=== PATIENT | male | born 1950 | race Asian ===

== ENCOUNTER 2018-05-04 01:05 | Emergency (ER) | payer MEDICARE, OTHER ==
[~2018-05-04] VITALS: Ht 165.1 cm; Wt 63.5 kg
[~2018-05-04 01:05] MED LIST: HYOS0.1283 SL; PANT40TA2 PO
[2018-05-04] MEDS ORDERED: TRAZ-28 (01:20)
[2018-05-04] MEDS ORDERED: LOVA40TA2 (01:20)
[2018-05-04] MEDS ORDERED: VERA180C4 (01:20)
[2018-05-04] MEDS ORDERED: FENO145T37 (01:20)
[2018-05-04] MEDS ORDERED: ASPIRIN 81 MG CHEW (CHILDREN'S ASA) PO ONE (01:30)
--- NOTE | 2018-05-04 01:37 | ED Chest Pain ---
General Chief Complaint: Chest Pain Stated Complaint: CHEST PAIN Nursing Triage Note: INTERMITTANT CHEST PAIN X2HRS STARTING AT REST. PT REPORTS IT RADIATES TO BACK. Nursing Sepsis Screen: No Definite Risk Source: patient, family (son) Exam Limitations: language barrier History of Present Illness Date Seen by Provider: May 04, 2018 Time Seen by Provider: 01:26 Initial Comments The patient presents to the ER by private conveyance with his son and a chief complaint that this evening he woke up having some chest pain and shortness of breath and he thought the chest pain in the center of his chest radiating to his back and felt like acid reflux which she has a problem with. He took an antacid 30 minutes ago and it did not help immediately like it usually does. His chest pain also felt a little different than his usual acid reflux and he was having shortness of breath and this worried him. The chest pain started 2 hours prior to arrival. He does not have a history of coronary artery disease however he does have hypertension and hyperlipidemia. He says he maybe prediabetic and no history of hyperthyroidism. He quit smoking kids ago. He does not have COPD. He has not been coughing having fevers or chills or rash. He has no nausea or sweats. His pain does not radiate to either the shoulder, neck or jaw. By the time he got to the ER however his pain is almost gone. His burning is better when he is up walking around and worse when he lays down flat. It is not made worse by exertion. Allergies and Home Medications Allergies Coded Allergies: No Known Drug Allergies (Unverified , 03/27/15) Patient Home Medication List Home Medication List Reviewed: Yes Review of Systems Constitutional: No chills, No diaphoresis EENTM: No Blurred Vision, No Double Vision Respiratory: See HPI; Denies Cough; Shortness of Air Cardiovascular: See HPI, Chest Pain; Denies Edema, Denies Irregular Heart Rate , Denies Palpitations Gastrointestinal: Denies Constipated, Denies Diarrhea, Denies Nausea Genitourinary: Denies Burning, Denies Discharge Musculoskeletal: No back pain, No joint pain Skin: No pruritus, No rash Psychiatric/Neurological: Denies Headache, Denies Numbness Past Vfmqyxu-Onjkiq-Srlrsf Hx Patient Social History Alcohol Use: Denies Use Recreational Drug Use: No Smoking Status: Never a Smoker 2nd Hand Smoke Exposure: No Recent Foreign Travel: No Contact w/Someone Who Travel: No Recent Infectious Disease Expo: No Recent Hopitalizations: No Immunizations Up To Date Tetanus Booster (TDap): Unknown Seasonal Allergies Seasonal Allergies: No Past Medical History Surgeries: No Respiratory: No Cardiac: Yes High Cholesterol, Hypertension Neurological: Yes Neuropathy Genitourinary: No Gastrointestinal: Yes Gastroesophageal Reflux Musculoskeletal: No Endocrine: No HEENT: No Cancer: No Psychosocial: No Integumentary: No Blood Disorders: No Physical Exam Vital Signs Vital Signs - First Documented Capillary Refill : Less Than 3 Seconds General Appearance: No Apparent Distress, WD/WN, Thin HEENT: PERRL/EOMI, Normal ENT Inspection, Pharynx Normal Neck: Full Range of Motion, Normal Inspection, Non Tender, Supple Respiratory: Chest Non Tender, Lungs Clear, Normal Breath Sounds, No Accessory Muscle Use, No Respiratory Distress Cardiovascular: Regular Rate, Rhythm, No Edema, No Murmur, Normal Peripheral Pulses Gastrointestinal: Normal Bowel Sounds, No Pulsatile Mass, Non Tender, Soft Extremity: Normal Capillary Refill, Normal Inspection, Non Tender, No Pedal Edema Neurologic/Psychiatric: Alert, Oriented x3, No Motor/Sensory Deficits Skin: Normal Color, Warm/Dry Progress/Results/Core Measures Results/Orders Lab Results Laboratory Tests Test 05/04/18 01:40 Range/Units White Blood Count 7.6 4.3-11.0 10^3/uL Red Blood Count 4.69 4.35-5.85 10^6/uL Hemoglobin 14.5 13.3-17.7 G/DL Hematocrit 43 40-54 % Mean Corpuscular Volume 91 80-99 FL Mean Corpuscular Hemoglobin 31 25-34 PG Mean Corpuscular Hemoglobin Concent 34 32-36 G/DL Red Cell Distribution Width 12.7 10.0-14.5 % Platelet Count 322 130-400 10^3/uL Mean Platelet Volume 9.5 7.4-10.4 FL Prothrombin Time 13.6 12.2-14.7 SEC INR Comment 1.0 0.8-1.4 Activated Partial Thromboplast Time 31 24-35 SEC D-Dimer 0.43 0.00-0.49 UG/ML Sodium Level 142 135-145 MMOL/L Potassium Level 3.4 L 3.6-5.0 MMOL/L Chloride Level 108 H 98-107 MMOL/L Carbon Dioxide Level 22 21-32 MMOL/L Anion Gap 12 5-14 MMOL/L Blood Urea Nitrogen 30 H 7-18 MG/DL Creatinine 0.93 0.60-1.30 MG/DL Estimat Glomerular Filtration Rate > 60 BUN/Creatinine Ratio 32 Glucose Level 127 H 70-105 MG/DL Calcium Level 10.0 8.5-10.1 MG/DL Magnesium Level 2.3 1.8-2.4 MG/DL Total Bilirubin 0.7 0.1-1.0 MG/DL Aspartate Amino Transf (AST/SGOT) 19 5-34 U/L Alanine Aminotransferase (ALT/SGPT) 14 0-55 U/L Alkaline Phosphatase 30 L 40-136 U/L Myoglobin 105.8 H 10.0-92.0 NG/ML Troponin I < 0.30 <0.30 NG/ML B-Type Natriuretic Peptide 26.0 <100.0 PG/ML Total Protein 7.4 6.4-8.2 GM/DL Albumin 4.3 3.2-4.5 GM/DL Lipase 22 8-78 U/L My Orders Orders - ISABELA CROSS Magnesium (05/04/18) Chest 1 View, Ap/Pa Only (05/04/18:) Ekg Tracing (05/04/18) Cardiac Profile 1 (05/04/18) Comprehensive Metabolic Panel (05/04/18) Myoglobin Serum (05/04/18:30) Protime With Inr (05/04/18) Partial Thromboplastin Time (05/04/18:) O2 (05/04/18:30) Monitor-Rhythm Ecg Trace Only (05/04/18) Lipid Panel (05/05/18 06:00) Aspirin Chewable Tablet (Baby Aspirin Ch (05/04/18:30) Saline Lock/Iv-Start (05/04/18) Lipase (05/04/1830) BNP (05/04/1830) Cbc No Diff (05/04/18) Fibrin Degradation Products (05/04/18) Medications Given in ED Current Medications Medications Dose Ordered Sig/Lazaro Route Start Time Stop Time Status Last Admin Dose Admin Aspirin 324 mg ONCE ONCE PO 05/04/18 01:30 05/04/18 01:33 DC 05/04/18 01:40 324 MG Vital Signs/I&O 05/04/18 05/04/18 05/04/18 01:10 01:10 01:10 Temp 96.9 Pulse 74 Resp 6 B/P (MAP) 176/54 (94) Pulse Ox 97 97 O2 Delivery Room Air Room Air Room Air Blood Pressure Mean: 94 Progress Progress Note #1: Time: 01:36 Progress Note Sounds that it is unlikely cardiogenic however given his age were going to go ahead and obtain an EKG and troponin. ED ACS 18 points. Not low risk. This patient is not a candidate for early discharge and should receive a standard chest pain evaluation with delayed troponin testing. Progress Note #2: Time: 02:23 Progress Note Shortness of breath does not seem to be due to pulmonary process, infection or CHF. His chest pain which is described as probably acid reflux has pretty much resolved half an hour after taking an antacid. The patient is not very interested in doing an overnight stay if it's not necessary to workup his heart so we'll discuss this with the dipper operator see if we can set up outpatient follow-up within 48 hours. Initial ECG Impression Date: May 04, 2018 Initial ECG Impression Time: 01:52 Initial ECG Rate: 61 Initial ECG Rhythm: Normal Sinus Initial ECG Intervals: Normal Initial ECG Impression: Normal Initial ECG Comparisson: No Previous ECG Available Comment No ST elevation or depression. Diagnostic Imaging Diagonstic Imaging: Xray Plain Films/CT/US/NM/MRI: chest (1v) Comments Unremarkable 1 view chest x-ray with no acute cardiopulmonary processes noted. Reviewed: Reviewed by Me Consults : Consulting Physician: HUY CLARKE MD Consults Notes Discussed case lab imaging EKG and findings and the patient's wishes to go home. He says it would be okay and he can have him follow-up in the morning Saturday in the clinic. Departure Impression Primary Impression: Chest pain Qualified Codes: R07.9 - Chest pain, unspecified Additional Impression: Shortness of breath at rest Disposition: 01 HOME, SELF-CARE Condition: Stable Departure-Patient Inst. Decision time for Depature: 02:48 Referrals: [facility] (PCP/Family) Primary Care Physician HUY CLARKE MD Patient Instructions: Chest Pain That Is Not Caused by the Heart (DC) Add. Discharge Instructions: Please call Dr. Clarke's clinic in the morning on Saturday and ask him for an appointment Saturday. If you have further worsening chest pain or shortness of breath he should return to the ER for further evaluation. All discharge instructions reviewed with patient and/or family. Voiced understanding. Copy Copies To 1: FOZIA DO DO; HUY CLARKE MD, TITUS J May 04, 2018 01:37
[2018-05-04 01:48] LABS: HEMOGLOBIN 14.5 G/DL (13.3-17.7); MEAN PLATELET VOLUME 9.5 FL (7.4-10.4); RED BLOOD COUNT 4.69 10^6/uL (4.35-5.85); RED CELL DISTRIBUTION WIDTH 12.7 % (10.0-14.5); WHITE BLOOD COUNT 7.6 10^3/uL (4.3-11.0)
[2018-05-04 01:59] LABS: PROTHROMBIN TIME PATIENT 13.6 SEC (12.2-14.7)
[2018-05-04 02:07] LABS: ALANINE AMINOTRANSFERASE 14 U/L (0-55); ALBUMIN 4.3 GM/DL (3.2-4.5); ALKALINE PHOSPHATASE 30 U/L (40-136); BILIRUBIN,TOTAL 0.7 MG/DL (0.1-1.0); BUN/CREATININE RATIO 32; CARBON DIOXIDE 22 MMOL/L (21-32); CHLORIDE 108 MMOL/L (98-107); CREATININE SERUM 0.93 MG/DL (0.60-1.30); GFR ESTIMATED > 60; GLUCOSE 127 MG/DL (70-105); LIPASE 22 U/L (8-78); MAGNESIUM 2.3 MG/DL (1.8-2.4); POTASSIUM 3.4 MMOL/L (3.6-5.0); SODIUM 142 MMOL/L (135-145); TOTAL PROTEIN 7.4 GM/DL (6.4-8.2)
[2018-05-04 02:14] LABS: MYOGLOBIN SERUM 105.8 NG/ML (10.0-92.0)
[2018-05-04 02:55] VITALS: BP 137/88
--- NOTE | 2018-05-04 05:52 | Diagnostic Imaging Report ---
Patient History: Chest pain. Technique: Single frontal view of the chest Comparison: 12/30/2015 FINDINGS: The lung volumes are normal. No focal consolidation is seen. No large pleural effusion or pneumothorax is seen. The cardiomediastinal silhouette is normal in size and contour. No acute osseous abnormality is seen. IMPRESSION: No acute pulmonary abnormality seen. Dictated by: Dictated on workstation # [id number]
--- OUTSIDE RECORDS SUMMARY | 2018-05-04 06:29 | XMS REPORT | Continuity of Care Document ---
Author Author [facility] Organization [facility] Address Unknown Phone Unavailable Allergies Active Description Code Type Severity Reaction Onset Reported/Identified Relationship to Patient Clinical Status Yes No Known Drug Allergies [id number] Drug Allergy Unknown N/A 03/27/2015 Medications There is no data. Problems Date Dx Coded Attending Type Code Diagnosis Diagnosed By 08/06/2014 FOZIA DO DO 272.4 DYSLIPIDEMIA 08/06/2014 FOZIA DO DO 401.1 HYPERTENSION, BENIGN ESSENTIAL 08/06/2014 FOZIA DO DO 607.84 IMPOTENCE OF ORGANIC ORIGIN 08/06/2014 FOZIA DO DO 724.3 SCIATICA 08/06/2014 FOZIA DO DO 272.4 DYSLIPIDEMIA 08/06/2014 FOZIA DO DO 401.1 HYPERTENSION, BENIGN ESSENTIAL 08/06/2014 FOZIA DO DO 607.84 IMPOTENCE OF ORGANIC ORIGIN 08/06/2014 FOZIA DO DO 724.3 SCIATICA 02/17/2015 FOZIA DO DO 780.52 INSOMNIA UNSPECIFIED 03/27/2015 CASTRO HENRY, AARON Armstrong Ot 276.8 03/27/2015 CASTRO HENRY, AARON Armstrong Ot 401.9 03/27/2015 AARON ERAZO MD Ot 780.4 03/27/2015 CASTRO HENRY, AARON Armstrong Ot 790.29 12/30/2015 EULALIO REYNAGA DO Ot R10.84 Procedures Code [place] [address] ROUTINE VENIPUNCTURE 08/06/2014 49649 TSH 08/06/2014 75363 CBC 08/06/20148814216 GFR CALC (RESULT ONLY) 08/06/2014 77170 CMP 08/06/2014 58108 LIPID PANEL 08/06/2014 Results Test Result Range CBC With Differential/Platelet - 10/18/16 15:45 WBC 7.2 x10E3/uL 3.4-10.8 RBC 4.77 x10E6/uL 4.14-5.80 Hemoglobin 15.0 g/dL 12.6-17.7 Hematocrit 44.1 % 37.5-51.0 MCV 93 fL 79-97 MCH 31.4 pg 26.6-33.0 MCHC 34.0 g/dL 31.5-35.7 RDW 13.4 % 12.3-15.4 Platelets 437 x10E3/uL 150-379 Neutrophils 52 % Lymphs 38 % Monocytes 7 % Eos 3 % Basos 0 % Neutrophils (Absolute) 3.7 x10E3/uL 1.4-7.0 Lymphs (Absolute) 2.7 x10E3/uL 0.7-3.1 Monocytes(Absolute) 0.5 x10E3/uL 0.1-0.9 Eos (Absolute) 0.2 x10E3/uL 0.0-0.4 Baso (Absolute) 0.0 x10E3/uL 0.0-0.2 Immature Granulocytes 0 % Immature Grans (Abs) 0.0 x10E3/uL 0.0-0.1 Comp. Metabolic Panel (14) - 10/18/16 15:45 Glucose, Serum 89 mg/dL 65-99 BUN 20 mg/dL 8-27 Creatinine, Serum 1.12 mg/dL 0.76-1.27 eGFR If NonAfricn Am 68 mL/min/1.73 >59 eGFR If Africn Am 79 mL/min/1.73 >59 BUN/Creatinine Ratio 18 10-22 Sodium, Serum 143 mmol/L 136-144 Potassium, Serum 4.1 mmol/L 3.5-5.2 Chloride, Serum 99 mmol/L 97-106 Carbon Dioxide, Total 28 mmol/L 18-29 Calcium, Serum 9.5 mg/dL 8.6-10.2 Protein, Total, Serum 7.3 g/dL 6.0-8.5 Albumin, Serum 4.6 g/dL 3.6-4.8 Globulin, Total 2.7 g/dL 1.5-4.5 A/G Ratio 1.7 1.1-2.5 Bilirubin, Total 0.4 mg/dL 0.0-1.2 Alkaline Phosphatase, S 33 IU/L 39-117 AST (SGOT) 20 IU/L 0-40 ALT (SGPT) 16 IU/L 0-44 Lipid Panel - 10/18/16 15:45 Cholesterol, Total 223 mg/dL 100-199 Triglycerides 96 mg/dL 0-149 HDL Cholesterol 42 mg/dL >39 VLDL Cholesterol Brown 19 mg/dL 5-40 LDL Cholesterol Calc 162 mg/dL 0-99 Prostate-Specific Ag, Serum - 10/18/16 15:45 Prostate Specific Ag, Serum 0.8 ng/mL 0.0-4.0 Magnesium, Serum - 10/18/16 15:45 Magnesium, Serum 2.3 mg/dL 1.6-2.3 Encounters ACCT No. Visit Date/Time Discharge Status Pt. Type Provider Facility Loc./Unit Complaint [id number] 12/30/2015 03:42:00 12/30/2015 06:08:00 DIS Emergency EULALIO REYNAGA DO [facility] ER [id number] 03/27/2015 04:06:00 03/27/2015 06:22:00 DIS Emergency AARON ERAZO MD [facility] ER [id number] 02/17/2015 13:44:00 02/17/2015 23:59:59 CLS Outpatient FOZIA DO DO [id number] 08/06/2014 08:27:00 08/06/2014 23:59:59 CLS Outpatient FOZIA DO DO [id number] 10/19/2016 10:05:00 Document Registration [id number] 04/04/2018 08:20:00 04/04/2018 23:59:59 CLS Outpatient SHEELA HERNÁNDEZ APRN [facility]
== END 2018-05-04 02:53 | disposition home or self-care (01) ==
LOC: EDUNIT# 01:05 → ER 01:08
DX: R07.9 Chest pain, unspecified (principal); R06.02 Shortness of breath; E78.00 Pure hypercholesterolemia, unspecified; I10 Essential (primary) hypertension; K21.9 Gastro-esophageal reflux disease without esophagitis; Z87.891 Personal history of nicotine dependence
CPT/HCPCS: 36415; 71045; 80053; 83690; 83735; 83874; 83880; 84484; 85027; 85379; 85610; 85730; 93005; 93041

== ENCOUNTER 2019-10-02 06:05 | Emergency (ER) | payer MEDICARE, OTHER ==
[~2019-10-02] VITALS: Ht 170 cm; Wt 52.0 kg
[~2019-10-02 06:05] MED LIST changes: +FENO145T37; +LOVA40TA2; +TRAZ-222; +VERA180C4
[2019-10-02] MEDS ORDERED: SODIUM BICARB 8.4% 50 MEQ/50 ML VIAL IV ONE (06:08)
[2019-10-02] MEDS ORDERED: EPINEPHrine INJECTION 1 MG/ML AMP IJ ONE (06:08)
[2019-10-02] MEDS ORDERED: ATROPINE INJECTION 1 MG/10 ML SYR (ABBOTT) INJ ONE (06:08)
--- NOTE | 2019-10-02 06:55 | ED CPR ---
HPI-CPR General Chief Complaint: Code Blue Stated Complaint: UNRESPONSIVE Nursing Triage Note: Pt arrived to ER via POV. Pt's son came for help to get pt out of car. Pt unresponsive on intial contact. Transferred pt to a chair then cart, Dr. Melgar checked for pulse, pt pulseless at time of arrival. Pt son reports pt has been unresponsive at approx 10 min prior to arrival. See Code Blue intervention for further details. Sepsis Screen: No Definite Risk Source of Information: Patient, Family Exam Limitations: Other History of Present Illness Date Seen by Provider: Oct 02, 2019 Time Seen by Provider: 06:00 Initial Comments The patient presents to ER from home conveyance with his son and chief complaint that he received a phone call from his mother 2 blocks away and 0546 that the pa tient was not breathing or responding. She immediately rushed to the hotel saw that he did not seem to be breathing and brought him to the ER. The patient does not have a known history of coronary disease but does have a history of hyperlipidemia, hypertension and indigestion. The relates that for the past couple hours been complaining of pain in his chest and thought was indigestion. He took some antacids and after a while he began to feel little better so he sat down in the chair to watch some TV in the front room and then stop responding. She said she immediately called her son. He had a brother who suddenly of a heart attack a few years ago. He was seen by the physician assistant primary care in the last week or 2 for some chest discomfort and was diagnosed with indigestion and put on an antacid. She's not had any fevers chills cough sweats nausea vomiting diarrhea dysuria in the past few days according to the . He was nauseated's evening and vomited once but that did not improve his pain. Allergies and Home Medications Allergies Coded Allergies: No Known Drug Allergies (Unverified , 03/27/15) Patient Home Medication List Home Medication List Reviewed: Yes Review of Systems Review of Systems Constitutional: see HPI (review of systems per history of present illness as collected from the .) All Other Systems Reviewed Negative Unless Noted: Yes Past Pneudkh-Wkeyjz-Ziejdz Hx Patient Social History Alcohol Use: Denies Use Recreational Drug Use: No 2nd Hand Smoke Exposure: No Recent Foreign Travel: No Contact w/Someone Who Travel: No Recent Infectious Disease Expo: No Recent Hopitalizations: No Immunizations Up To Date Tetanus Booster (TDap): Unknown Seasonal Allergies Seasonal Allergies: No Past Medical History Surgeries: No Respiratory: No Cardiac: Yes High Cholesterol, Hypertension Neurological: Yes Neuropathy Genitourinary: No Gastrointestinal: Yes Gastroesophageal Reflux Musculoskeletal: No Endocrine: No HEENT: No Cancer: No Psychosocial: No Integumentary: No Blood Disorders: No Physical Exam Vital Signs Vital Signs - First Documented 10/02/19 06:39 Pulse 116 B/P (MAP) 110/99 (103) Pulse Ox 74 O2 Delivery Room Air Capillary Refill : Greater Than 3 Seconds Height, Weight, BMI Height: 5'5.00" Weight: 140lbs. oz. 63.932460vy; 17.00 BMI Method:Stated General Appearance: Severe Distress, Other (cardiopulmonary arrest) HEENT: Other (pupils fixed at 4 mm bilateral and reactive to light) Neck: Normal Inspection, Supple Respiratory: Respiratory Distress (respiratory collapse with clear sounding breath sounds) Cardiovascular: Other (cardiac arrest with no pulses palpable and cyanotic appearing extremities) Extremity: No Pedal Edema, Other (cyanotic appearing extremities without capillary refill) Neurologic/Psychiatric: Other (unconscious, GCS 3) Skin: Warm/Dry, Cyanosis (extremities) Procedures/Interventions Reason for Intubation: cardiopulmonary arrest Date of ETT Placement: Oct 02, 2019 Time of ETT Placement: 06:15 Intubation Method: orotracheal Tube Size: 7.5 Positive End Tide CO2: Yes Breath Sounds after Intubation: bilateral-equal Intubation Complications: O2 saturation decreased Post Intubation Xray: No (not indicated) Video laryngoscope and 7.5 ET tube was placed at 24 at the gums. A single partial denture was removed prior to intubation. Suction of clear thin secretions at the upper airway was performed with a [place]unker Progress/Results/Core Measures Results/Orders Lab Results Laboratory Tests Test 10/02/19 06:13 Range/Units Glucometer 128 H 70-110 MG/DL Vital Signs/I&O 10/02/19 06:39 Pulse 116 B/P (MAP) 110/99 (103) Pulse Ox 74 O2 Delivery Room Air Blood Pressure Mean: 103 POS Critical Care Note Critical Care Start Time: 06:00 Stop Time: 06:38 Total Time (minutes) 38 Date of : Oct 02, 2019 Time of : 06:38 Progress By the time the patient arrived he was approximately 15 minutes without bystander cpr or rescue breathing. we immediately began compressions as we got him out of the vehicle onto a gurney. We brought him to the room and initiated bag valve mask ventilation and applied a intravenous line to his right forearm as well as an io to his right tibial plateau. We initiated a liter of fluids, a milligram of epinephrine, hooked him up to the monitor and obtained a definitive airway using a 7.5 ET tube. Patient's sats were initially in the 30s with a good pulsatile waveform and these improved steadily up to 98% as we went through about 4 rounds of CPR. An amp of bicarbonate was given as well as a unit dose of atropine. Her notes for times of administration of epinephrine and pulse ox. At no time was any shock indicated. The patient initially presented with a slow 5 bpm carotid pulse. No electrical activity was seen on the monitor. Subsequent pulse checks after the first pulse check only demonstrated asystole. We were able to produce good oxygen sats and a blood pressure of 200/140 while compressing. Patient's lungs were suctioned and only a small amount of pink frothy sputum was obtained. No evidence of aspiration. A NG was placed by nursing. After 30 minutes of CPR and only a systole we had a second conversation with family and at this time elected to discontinue our resuscitative efforts. We discontinued our efforts at 0638. The patient had no movement of breath, external chest rise, audible heart tones to auscultation or central pulse palpable. An attempt was made to draw blood for a i-STAT however we were unable to obtain a usable sample. A second IV was attempted but for could be established we discontinued our resuscitative efforts. Blood sugar is 124 by capillary stick. Departure Impression Primary Impression: Cardiopulmonary arrest Additional Impression: Disposition: 20 Condition: Departure-Patient Inst. Decision time for Depature: 06:38 Referrals: [facility] (PCP/Family) Primary Care Physician Patient Instructions: Sudden Cardiac Arrest Add. Discharge Instructions: All discharge instructions reviewed with patient and/or family. Voiced understanding. Copy Copies To 1: FOZIA DO TITUS J Oct 02, 2019 06:55 POS
--- NOTE | 2019-10-02 09:50 | NUR ---
Francisco Jewell and Ioana Shelley attended and provided emotional support to pt's family. Pt is an organ jah. Family anticipating phone call fro [facility]. Youngest and eldest daughters present and making arrangements in [place] where the pt is from. The daughter said she communicated with the nurse about which home they contacted. The family came to [facility] 30 years ago as [place] refugees. Strong family support demonstrated. Pt's son from [place] is anticipated to arrive. Addendum: 10/02/19 at 0955 by IOANA SHELLEY PAST Francisco Jewell and Ioana Shelley attended and provided emotional support to pt's family. Pt is an organ doner. Family said they are anticipating a phone call from [facility]. Youngest and eldest daughters present and making arrangements in [place] where the pt is from. The daughter said she communicated with the nurse about which home they contacted. The family came to [facility] 30 years ago as [place] refugees. Strong family support demonstrated. Pt's son from [place] is anticipated to arrive.
--- NOTE | 2019-10-02 11:19 | NUR ---
SPOKE TO [place]. PT WILL BE ELIGIBLE FOR TISSUE DONATION. WILL CALL BACK IN AN HOUR TO UPDATE ON TRANSPORT TIME. ICE APPLIED TO PT PER [facility] INSTRUCTION.
--- NOTE | 2019-10-02 12:04 | NUR ---
SPOKE TO [facility], THEY WILL HAVE A TECH HERE TO RECOVER PT AROUND [id number]. AFTER [facility], PT WILL BE TRANSPORTED TO [place].
[2019-10-02 12:28] VITALS: BP 0/0
--- NOTE | 2019-10-02 12:28 | NUR ---
PT TRANSFERRED TO [facility] 508.
== END 2019-10-02 12:28 | disposition expired ==
LOC: EDUNIT# 06:05 → ER 06:07
DX: I46.9 Cardiac arrest, cause unspecified (principal); I10 Essential (primary) hypertension; E78.5 Hyperlipidemia, unspecified; E78.00 Pure hypercholesterolemia, unspecified; G62.9 Polyneuropathy, unspecified; K21.9 Gastro-esophageal reflux disease without esophagitis
CPT/HCPCS: 31500; 36680; 82962